=== PATIENT | female | born 2000 | race Hispanic/Latino ===

== ENCOUNTER 2021-03-17 21:16 | Emergency (ER) | payer BC, MEDICAID ==
[2021-03-17] MEDS ORDERED: DIPHENHYDRAMINE HCL 25 MG CAPSULE ONE (21:29)
[2021-03-17] MEDS ORDERED: HYDROCODONE/ACETAMINOPHEN 10/325 MG TAB ONE (21:29)
== END 2021-03-17 21:42 | disposition home or self-care (01) ==
LOC: EDH 21:16
DX: T63.621A Toxic effect of contact with other jellyfish, accidental (unintentional), initial encounter (principal); Y92.832 Beach as the place of occurrence of the external cause
CPT/HCPCS: 99283; Q0163